=== PATIENT | female | born 1960 | race Caucasian/White ===

== ENCOUNTER → 2017-07-30 | Outpatient (CLI) | payer BC | LOC: COL.LAB 12:10 | DX: M79.605 Pain in left leg (principal) ==

== ENCOUNTER → 2017-08-01 | Outpatient (CLI) | payer BC | LOC: COL.VAS 12:15 | DX: M79.89 Other specified soft tissue disorders (principal); M25.562 Pain in left knee; M79.605 Pain in left leg ==

== ENCOUNTER 2020-04-08 07:08 | Emergency (ER) | payer SELFPAY ==
[~2020-04-08] VITALS: Ht 149.9 cm; Wt 109.1 kg
[2020-04-08 07:18] VITALS: TEMP 97.5
[2020-04-08] MEDS ORDERED: TYLENOL 8 HR PO (07:26)
[2020-04-08 08:44] VITALS: BP 129/84; PULSE 72
== END 2020-04-08 08:45 | disposition home or self-care (01) ==
LOC: COL.ER 07:08
DX: S01.01XA Laceration without foreign body of scalp, initial encounter (principal); R40.2410 Glasgow coma scale score 13-15, unspecified time; W01.190A Fall on same level from slipping, tripping and stumbling with subsequent striking against furniture, initial encounter; Y92.59 Other trade areas as the place of occurrence of the external cause; Y99.0 Civilian activity done for income or pay

== ENCOUNTER → 2020-04-17 | Outpatient (CLI) | payer SELFPAY ==
[~2020-04-17] MED LIST: TYLENOL 8 HR PO
[2020-04-17 12:53] VITALS: BP 146/97; PULSE 75; TEMP 98.5
== END ==
LOC: COL.ER 12:45
DX: Z48.02 Encounter for removal of sutures (principal)

== ENCOUNTER 2020-06-09 12:43 | Emergency (ER) | payer OTHER, BC ==
[~2020-06-09] VITALS: Ht 149.9 cm; Wt 109.1 kg
[2020-06-09 12:56] VITALS: BP 158/89; TEMP 98.3
[2020-06-09 13:23] VITALS: PULSE 77
== END 2020-06-09 13:24 | disposition home or self-care (01) ==
LOC: COL.ER 12:43
DX: L02.811 Cutaneous abscess of head [any part, except face] (principal); Z23 Encounter for immunization

== ENCOUNTER 2021-08-26 04:19 | Emergency (ER) | payer BC ==
[~2021-08-26] VITALS: Ht 149.9 cm; Wt 118.2 kg
[2021-08-26 04:22] VITALS: TEMP 97.6
[2021-08-26] MEDS ORDERED: PERCOCET 325 MG1 TA2 PO (04:55)
[2021-08-26 05:03] VITALS: BP 157/74; PULSE 62
== END 2021-08-26 05:03 | disposition home or self-care (01) ==
LOC: COL.ER 04:19
DX: S43.101A Unspecified dislocation of right acromioclavicular joint, initial encounter (principal); S42.254A Nondisplaced fracture of greater tuberosity of right humerus, initial encounter for closed fracture; W01.198A Fall on same level from slipping, tripping and stumbling with subsequent striking against other object, initial encounter

== ENCOUNTER → 2021-10-22 | Outpatient (RCR) | payer BC ==
[~2021-10-22] MED LIST changes: +PERCOCET 325 MG1 TA2 PO
== END | disposition still patient (30) ==
LOC: MKS.ESL.PT
DX: S42.254D Nondisplaced fracture of greater tuberosity of right humerus, subsequent encounter for fracture with routine healing (principal); X58.XXXD Exposure to other specified factors, subsequent encounter

== ENCOUNTER 2021-11-12 14:15 | Outpatient (RCR) | payer BC | END 2021-11-12 14:44 | disposition home or self-care (01) | LOC: MKS.ESL.PT 14:15 | DX: S42.254D Nondisplaced fracture of greater tuberosity of right humerus, subsequent encounter for fracture with routine healing (principal); X58.XXXD Exposure to other specified factors, subsequent encounter ==